=== PATIENT | male | born 1995 | race Caucasian/White ===

== ENCOUNTER 2020-07-18 14:15 | Emergency (ER) | payer BC, SELFPAY ==
--- NOTE | ~2020-07-18 | XR_ITS ---
EXAMINATION: XR chest 1V portable EXAM DATE: 07/18/2020 17:16 INDICATION: Right lower quadrant pain. TECHNIQUE: Portable AP frontal chest x-ray was obtained. There is no prior study for comparison. FINDINGS: The lungs are clear. There are no pleural effusions. The cardiomediastinal silhouette is within normal limits. There is no pneumothorax suspected. The bones and soft tissues are unremarkab le. IMPRESSION: Normal chest x-ray exam. Reviewed, dictated and finalized at location A. 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
[2020-07-18 14:24] VITALS: BP 152/80; PULSE 75; RESP 18; TEMP 36.8; O2SAT 98
[2020-07-18 16:49] LABS: Basophils Percent Auto 0.4 % (0.2-1.2); Eosinophils Absolute Auto 0.1 K/mm3 (0-0.3); Eosinophils Percent Auto 0.7 % (0-4.4); Hematocrit 49.7 % (42.0-52.0); Hemoglobin 17.3 g/dL (14.0-18.0); Immature Granulocyte Absolute 0.03 K/mm3 (0.00-0.031); Immature Granulocyte Percent A 0.3 % (0-0.5); Lymphocytes Absolute Auto 2.19 K/mm3 (0.9-3.2); Lymphocytes Percent Auto 21.8 % (18.3-44.2); Mean Corpuscular HGB Conc 34.8 g/dl (32-36); Mean Corpuscular Hemoglobin 31.1 pg (26-34); Mean Corpuscular Volume 89.2 fl (80-100); Mean Platelet Volume 9.5 fl (7.4-10.4); Monocytes Absolute Auto 0.6 K/mm3 (0.1-0.6); Monocytes Percent Auto 6.2 % (2.6-8.5); Neutrophils Absolute Auto 7.1 K/mm3 (1.3-6.7); Neutrophils Percent Auto 70.6 % (45.5-73.1); Platelet Count Result 270 k/mm3 (150-375); Red Blood Count 5.57 M/mm3 (4.6-6.20); Red Cell Distribution Width 11.8 % (11.5-14.5); White Blood Count 10.1 K/mm3 (4.5-10.0)
[2020-07-18 16:51] LABS: Add Urine Microscopic? NO; Appearance Urine Clear (Clear); Bilirubin Urine Negative (Negative); Blood Urine Negative (Negative); Color Urine Yellow (Yellow); Glucose Urine UA Negative (Negative); Ketones Urine Negative (Negative); Leukocyte Esterase Ur Negative LEU/UL (Negative); Nitrate Urine Negative (Negative); Protein Urine Negative (Negative); Specific Grav Ur 1.023 (1.001-1.035); Urobilinogen Urine Negative mg/dL (<2.0)
[2020-07-18 17:00] LABS: Alanine Aminotransferase 35 U/L (4-50); Alkaline Phosphatase 70 U/L (38-126); Anion Gap 9 mmol/L (8-16); Aspartate Amino Transferase 27 U/L (17-59); Bilirubin,Total 0.6 mg/dL (0.2-1.3); Blood Urea Nitrogen 10 mg/dL (9-20); Calcium 10.3 mg/dL (8.4-10.2); Carbon Dioxide 32 mmol/L (22-30); Chloride 99 mmol/L (98-107); Estimated CRCL calculation 125 ml/min; Estimated Glomerular Filt Rate > 60; Glucose 110 mg/dL (75-110); Lipase 75 U/L (23-300); Potassium 4.1 mmol/L (3.4-5.0); Sodium 140 mmol/L (137-145)
[2020-07-18 17:45] VITALS: BP 136/67; PULSE 71; O2SAT 97
[2020-07-18] MEDS: KETOROLAC (*BKC) 60 MG/2 ML VIAL 30 MG IM (17:53)
[2020-07-18] MEDS: Please add drug allergy info to patient profile. 1 EACH XX (17:53)
--- NOTE | 2020-07-18 18:02 | ED.GENADULT ---
HPI - General Adult General Chief complaint: Abdominal Pain Stated complaint: abd pain Time Seen by Provider: 07/18/20 16:27 Source: patient Mode of arrival: ambulatory Limitations: no limitations History of Present Illness HPI narrative: Patient presents with chief complaint of intermittent abdominal pain that presents above the right and left side of his abdomen at different times in different areas. Patient states it started approximately a month and a half ago he was diagnosed with pleurisy and that resolved but he still has intermittent sharp abdominal pains. He states that he takes ibuprofen occasionally and it helps the discomfort. Patient states that he was on [employer] and wanted to make sure that he did not have any worsening issues. Patient denies fever, chills, nausea, vomiting, intense abdominal pain, diarrhea or any other symptoms. Patient denies pain presently. Related Data Home Medications Medication Instructions Recorded Confirmed No Home Medications 07/18/20 07/18/20 Allergies Allergy/AdvReac Type Severity Reaction Status Date / Time No Known Allergies Allergy Verified 07/18/20 17:52 Review of Systems Review of Systems: Narrative: CONSTITUTIONAL: Denies fever, chills, or sweats. EYES: Denies visual changes, redness, or discharge. ENT: Denies rhinorrhea, congestion, sore throat, or otalgia. CARDIOVASCULAR: Denies chest pain, palpitations, or edema. RESPIRATORY: Denies cough or dyspnea. GASTROINTESTINAL: Reports intermittent abdominal pain, denies nausea, vomiting, or diarrhea. GENITOURINARY: Denies dysuria or hematuria. SKIN: Denies rash or itching. MUSCULOSKELETAL: Denies back pain, joint pain, or myalgia. NEUROLOGIC: Denies headache, numbness, dizziness, or weakness. PSYCHIATRIC: Denies anxiety or depression. PMFSH Past Medical History Medical History (Updated 07/18/20 @ 18:06 by Wilfredo Reynolds PA-C) Pleurisy Exam Narrative: Exam Narrative: GENERAL: Well-appearing, well-nourished, and in no acute distress. HEAD: Normocephalic, atraumatic. EYES: PERRLA and EOMI. NECK: Supple. No adenopathy or masses. CHEST: Clear to auscultation. No respiratory distress. No wheezes rales or rhonchi HEART: Regular rate and rhythm. No murmur heard. Normal peripheral pulses. ABDOMEN: Soft, nontender with palpation of the abdomen, nondistended, normal active bowel sounds. Negative Peters sign. No tenderness to McBurney's point. EXTREMITIES: Normal range of motion. No edema. SKIN: Warm, dry, no rash. NEURO: No focal deficits. Alert and oriented x3. PSYCH: Normal mood and affect. Course Vital Signs Vital signs: Vital Signs Temperature 98.3 F 07/18/20 14:24 Pulse Rate 75 07/18/20 14:24 Respiratory Rate 18 07/18/20 14:24 Blood Pressure 152/80 H 07/18/20 14:24 Pulse Oximetry 98 07/18/20 14:24 Temperature 98.3 F 07/18/20 14:24 Pulse Rate 71 07/18/20 17:45 Respiratory Rate 18 07/18/20 14:24 Blood Pressure 136/67 07/18/20 17:45 Pulse Oximetry 97 07/18/20 17:45 Medical Decision Making MDM Narrative Medical decision making narrative: Patient is sitting in bed comfortably reading a book. He denies any pain or discomfort or distress. Patient is not toxic or ill in appearance. He is not experiencing any pain or discomfort. He does not have pain in McBurney's point or Peters's point. Patient instructed to follow-up with his primary care for further evaluation and to return to the emergency department if he has any emergent symptoms. Differential Diagnosis Differential Diagnosis: Diverticulitis, appendicitis, bowel obstruction, musculoskeletal pain, gastroenteritis Vital Signs Vital Signs: Vital Signs Temperature 98.3 F 07/18/20 14:24 Pulse Rate 75 07/18/20 14:24 Respiratory Rate 18 07/18/20 14:24 Blood Pressure 152/80 H 07/18/20 14:24 Pulse Oximetry 98 07/18/20 14:24 Temperature 98.3 F 07/18/20 14:24 Pulse Rate 71 07/18/20 17:45 Respirator
== END 2020-07-18 18:30 | disposition home or self-care (01) ==
PROVIDERS: Emergency Provider Emergency Medicine
DX: R10.9 Unspecified abdominal pain (principal)
CPT/HCPCS: 36415; 71045; 80053; 81003; 83690; 85025; 96372; 99284; J1885

== ENCOUNTER 2021-03-08 16:17 | Emergency (ER) | payer BC, SELFPAY ==
--- NOTE | ~2021-03-08 | XR_ITS ---
EXAMINATION: XR chest 2V 03/08/2021 16:43 INDICATION: Chest pain PROCEDURE: 2 view chest COMPARISON: 07/18/2020 FINDINGS: The lungs are clear. The cardiomediastinal silhouette is within normal limits. There are no pleural effusions. There is no pneumothorax suspected. IMPRESSION: 1: NO ACUTE CARDIOPULMONARY DISEASE. Reviewed, dictated and finalized at location A.
--- NOTE | 2021-03-08 16:19 | ECG_ITS ---
Measurements Intervals [place] Rate: 89 P: 54 ME: 152 QRS: 82 QRSD: 76 T: 24 QT: 322 QTc: 392 Interpretive Statements SINUS RHYTHM WITH SINUS ARRHYTHMIA BASELINE ARTIFACT- I, III, AVR, AVL, AVF NORMAL ECG Electronically Signed On 03-08-2021 20:11:26 CDT by Michael Yu D.O.
[2021-03-08 16:24] VITALS: BP 146/76; PULSE 74; RESP 16; O2SAT 100
[2021-03-08 16:40] LABS: Basophils Percent Auto 0.4 % (0.2-1.2); Eosinophils Absolute Auto 0.2 K/mm3 (0-0.3); Hemoglobin 16.9 g/dL (14.0-18.0); Immature Granulocyte Absolute 0.02 K/mm3 (0.00-0.031); Immature Granulocyte Percent A 0.2 % (0-0.5); Lymphocytes Absolute Auto 2.25 K/mm3 (0.9-3.2); Lymphocytes Percent Auto 24.9 % (18.3-44.2); Mean Corpuscular HGB Conc 34.5 g/dl (32-36); Mean Corpuscular Hemoglobin 30.1 pg (26-34); Mean Corpuscular Volume 87.2 fl (80-100); Monocytes Absolute Auto 0.6 K/mm3 (0.1-0.6); Monocytes Percent Auto 6.9 % (2.6-8.5); Neutrophils Absolute Auto 5.9 K/mm3 (1.3-6.7); Neutrophils Percent Auto 65.6 % (45.5-73.1); Platelet Count Result 269 k/mm3 (150-375); Red Blood Count 5.62 M/mm3 (4.6-6.20); Red Cell Distribution Width 11.9 % (11.5-14.5)
[2021-03-08 16:48] LABS: Anion Gap 13 mmol/L (8-16); Blood Urea Nitrogen 15 mg/dL (9-20); Calcium 10.3 mg/dL (8.4-10.2); Carbon Dioxide 24 mmol/L (22-30); Chloride 102 mmol/L (98-107); Estimated Glomerular Filt Rate > 60; Glucose 106 mg/dL (75-110); Potassium 4.1 mmol/L (3.4-5.0); Sodium 139 mmol/L (137-145)
[2021-03-08 16:51] LABS: INR 1.1; Partial Thromboplastin Time 24.1 SECONDS (22.3-36.8); Prothrombin Time 13.8 Seconds (11.1-14.7)
[2021-03-08 17:00] LABS: Troponin I < 0.012 ng/mL (0.000-0.034)
--- NOTE | 2021-03-08 17:34 | ED.CHESTPAIN ---
HPI - Chest Pain General Chief Complaint: Chest Pain Stated Complaint: chest pain Time Seen by Provider: 03/08/21 17:15 Source: patient and RN notes reviewed Mode of arrival: ambulatory Limitations: no limitations History of Present Illness HPI narrative: This is a 25 year old male who presents for evaluation of left chest pain. Patient states he developed left upper chest pain on Friday as he was smoking Marijuana. He states this pain was constant on Friday, and he noticed left shoulder pain on Friday morning. His chest pain has been intermittent since. His pain is worse with inspiration, and he states he has intermittent shortness of breath. He reports he had similar pain last year and he was diagnosed with pleurisy. He stopped smoking marijuana after that diagnosis last year, and he states his pain resolved. He started smoking again in October. He reports mild cough and possibly wheezing. He denies fever, chills , vomiting or diarrhea. He has not taken any for his pain. Related Data Home Medications Medication Instructions Recorded Confirmed No Home Medications 07/18/20 07/18/20 Allergies Allergy/AdvReac Type Severity Reaction Status Date / Time No Known Allergies Allergy Verified 03/08/21 20:03 Review of Systems Review of Systems: All systems reviewed & are unremarkable except as noted in HPI and below PMFSH Past Medical History Medical History (Updated 03/08/21 @ 20:09 by Aileen George MD) Pleurisy Surgical History Surgical History (Updated 03/08/21 @ 18:02 by Aileen George MD) No pertinent past surgical history Social History Social History (Updated 03/08/21 @ 18:03 by Aileen George MD) Smoking status: Never smoker Alcohol intake: current Substance use: current Substance use type: marijuana Exam Narrative: Exam Narrative: GENERAL: Well-appearing, well-nourished, and in no acute distress. HEAD: Normocephalic, atraumatic EYES: PERRLA and EOMI, conjunctiva clear without discharge THROAT:Mucous membranes moist, Oropharynx normal without erythema, exudate, peritonsillar swelling or fluctuance NECK: Supple, without lymphadenopathy or mass RESPIRATORY: No respiratory distress, Airway patent, Respirations non-labored, Clear to auscultation without rales, rhonchi or wheeze HEART: Regular rate and rhythm. No murmur heard. Normal peripheral pulses. ABDOMEN: Soft, nontender, nondistended, normal active bowel sounds. No masses. No rebound or guarding, No organomegaly. EXTREMITIES: No edema, normal strength with full range of motion. SKIN: Warm, dry, normal color without rash NEURO: Alert and oriented x3. CN 2-12 grossly intact. No focal deficits. PSYCH: Normal mood and affect. Const: General: alert Orientation/consciousness: patient oriented x3 Course Reevaluation(s) Reevaluation #1: Patient 's symptoms are atypical for cardiac . It is likely pleurisy Date: 03/08/21 Time: 20:07 Vital Signs Vital signs: Vital Signs Pulse Rate 74 03/08/21 16:24 Respiratory Rate 16 03/08/21 16:24 Blood Pressure 146/76 H 03/08/21 16:24 Pulse Oximetry 100 03/08/21 16:24 Pulse Rate 63 03/08/21 19:48 Respiratory Rate 18 03/08/21 19:48 Blood Pressure 120/72 03/08/21 19:48 Pulse Oximetry 99 03/08/21 19:48 MDM - Chest Pain Lab Data Attestation: I reviewed the patient's lab results. Result diagrams: 03/08/21 16:31 03/08/21 16:31 Labs: Lab Results 03/08/21 03/08/21 03/08/21 Range/Units 16:31 16:31 16:31 WBC 9.0 (4.5-10.0) K/mm3 RBC 5.62 (4.6-6.20) M/mm3 Hgb 16.9 (14.0-18.0) g/dL Hct 49.0 (42.0-52.0) % MCV 87.2 (80-100) fl MCH 30.1 (26-34) pg MCHC 34.5 (32-36) g/dl RDW 11.9 (11.5-14.5) % Plt Count 269 (150-375) k/mm3 MPV 10.0 (7.4-10.4) fl Immature Gran % (Auto) 0.2 (0-0.5) % Neut % (Auto) 65.6 (45.5-73.1) % Lymph % (Auto) 24.9 (18.3-44.2) %
[2021-03-08 17:52] VITALS: BP 118/70; PULSE 62; RESP 17; O2SAT 98
[2021-03-08 17:54] LABS: D Dimer 0.27 ug/mL (<0.48)
[2021-03-08] MEDS: IBUPROFEN 400 MG TABLET 800 MG PO (17:54)
[2021-03-08 19:48] VITALS: BP 120/72; PULSE 63; RESP 18; O2SAT 99
[2021-03-08 20:01] LABS: Troponin I < 0.012 ng/mL (0.000-0.034)
== END 2021-03-08 20:45 | disposition home or self-care (01) ==
PROVIDERS: Emergency Medicine; Emergency Provider General Practice
DX: R07.89 Other chest pain (principal)
CPT/HCPCS: 36415; 71046; 80048; 84484; 85025; 85380; 85610; 85730; 93005; 99284; A9270